=== PATIENT | female | born 1985 | race Caucasian/White ===

== ENCOUNTER → 2025-07-31 | Outpatient (REF) | payer OTHER | LOC: M SFHCDERM 17:38 | PROVIDERS: ATTEND Nurse Practitioner Family | DX: L40.8 Other psoriasis (principal) ==

== ENCOUNTER → 2025-09-15 | Outpatient (REF) | payer OTHER ==
[2025-09-15 17:47] LABS: FREE T4 1.18 NG/DL (0.89-1.76)
[2025-09-15 17:48] LABS: CORTISOL PM 4.9 UG/DL (3.1-16.7)
[2025-09-22 20:57] LABS: TESTOSTERONE FREE (DIRECT) 1.7 pg/mL (0.1-6.4); TESTOSTERONE TOTAL FOR T&D 19.0 ng/dL (2-45)
== END ==
LOC: M SFHCPLAZ 13:26
PROVIDERS: ATTEND Nurse Practitioner Family
DX: R23.4 Changes in skin texture (principal); L67.9 Hair color and hair shaft abnormality, unspecified